=== PATIENT | female | born 1985 | race Caucasian/White ===

== ENCOUNTER → 2016-11-16 07:17 | Day surgery (SDC) | payer OTHER ==
[~2016-11-16 07:17] MED LIST: Buffered Lidocaine 1% SYRIN* 3 ML/SYR SYRINGE INTRADERM ONE; Bupivacaine 0.25% SDV* 30 ML ONE; Dexamethasone IV* 4 MG/ML 1 ML (4 MG) ONE; DiMENhydriNATE IV* 50 MG/ML VIAL IV PUSH PRN; DiMENhydriNATE IV* 50 MG/ML VIAL ONE; Famotidine TAB* 20 MG ONE; Famotidine TAB* 20 MG PO ONE; Ketorolac INJ* 30 MG/ML 1 ML VIAL ONE; Lidocaine 2% PF* 5 ML VIAL ONE; Metoclopramide TAB* 10 MG ONE; Metoclopramide TAB* 10 MG PO ONE; Ondansetron INJ* 2 MG/ML VIAL ONE; Propofol* 10 MG/ML 20 ML BTL IV PUSH ONE; Scopolamine 1.5 mg* PATCH ONE; Scopolomine PATCH Remove* 1 NOTE MISC PATCH OFF ONE; Sodium Citrate/Citric Acid* 15 ML UDC ONE; Sodium Citrate/Citric Acid* 15 ML UDC PO ONE; celeCOXIB CAP* 100 MG ONE; celeCOXIB CAP* 100 MG PO ONE; fentaNYL* 50 MCG/ML 2 ML VIAL (100 MCG VIAL) ONE; oxyCODONE/Acetamin 5/325 MG* TAB ONE
[2016-11-16 07:31] LABS: Manual Entry Verification AS; UR Preg Internal Control QC Line Present; UR Preg Kit Lot# 6030156
[2016-11-16] MEDS: fentaNYL* 50 MCG/ML 2 ML VIAL (100 MCG VIAL) IV PRN ×4 (11:41→12:37)
[2016-11-16] MEDS: oxyCODONE/Acetamin 5/325 MG* TAB PO PRN ×2 (12:01→12:04)
[2016-11-16 12:53] VITALS: BP 115/78
--- NOTE | 2016-11-17 00:50 | OP ---
DATE OF OPERATION: 11/16/16 [facility] DATE OF : 87 SURGEON: Gaby Hendrix MD SHOE DYER: Kg Watkins MD ANESTHESIOLOGIST: Coleman Rivas MD ANESTHESIA: General PRE-OP DIAGNOSES: Suspected bilateral endometriomas, desires contraception. POST-OP DIAGNOSIS: Endometriosis. OPERATIVE PROCEDURE: Laparoscopic left partial ovarian cystectomy, b/l ovarian cystotomy, fulgaration of endometriosis, lysis of adhesions. Mirena IUD insertion. ESTIMATED BLOOD LOSS: 300 mL. FLUID: Crystalloid. DRAINS: Clear urine. COMPLICATIONS: None. FINDINGS: On entrance into the abdominal cavity and inspection of the pelvis, the patient was noted to have large cysts on both ovaries with both ovaries scarred into the posterior cul-de-sac. There was a small spot of clear endometriosis in the right lower anterior pelvic wall and some endometriosis on the left pelvic side wall. These turned out to be chocolate cysts when they were ruptured. Both tubes appeared normal with minimal endometriotic damage and the uterus appeared normal anteriorly just with the scarring posteriorly. Appendix and liver and the intestines that were seen appeared normal. DESCRIPTION OF PROCEDURE: After informed consent was signed, the patient was taken to the operating room where she was given general anesthesia that was found to be adequate. She was prepped and draped in the dorsal lithotomy position in the [facility]. A speculum was placed into her vagina to expose the cervix and the anterior lip of the cervix was grasped with a single- tooth tenaculum. The Hulka manipulator was then inserted into the cervix. Cadet catheter was placed into the bladder and removed after the procedure. Gloves were changed and attention was turned to the abdomen. The infraumbilical fold was grasped with two Allis clamps, tented up, injected with lidocaine and incised in a transverse fashion with a scalpel 10 mm in length. This incision was then carried down to the underlying layer of fascia, which was grasped with two Lori clamps, tented up, and cut with the Alcala scissors. The fascial incision was extended with combination of sharp and blunt dissection. The peritoneum was then grasped and tented up, cut with Metzenbaum scissors and eventually the abdominal cavity was entered bluntly. The camera was assembled and inserted with the trocar into the abdominal cavity. Once entrance was confirmed, the abdomen was insufflated and the previously mentioned findings were noted. Two lateral ports were then placed. The location was first injected with lidocaine with epinephrine. Then, a 5-mm incision was made with a scalpel and the trocar was inserted under direct visualization. Next, attention was turned to the pelvis. The adhesions were bluntly released between the uterus and the ovaries. The larger cyst coming from the left ovary began to drain and as much fluid was drained as possible. This was then suctioned and irrigated. A small portion of the cyst wall was removed along with some ovary, but it was very difficult to separate the cyst wall from the ovary itself as the wall was very thick. Next, attention was turned to the right ovary where cautery was used to incise the ovary until the cyst began to drain. There were both a chocolate cyst and a simple fluid- filled cyst that were drained. Bipolar and monopolar cautery were then used to cauterize the ovary on both sides where there was some bleeding. Fulguration of this one spot of clear endometriosis on the anterior right pelvic wall was done with the LigaSure device. The ovaries were released from the adhesions in the pelvis, so they could move freely. The abdomen was extensively irrigated and suctioned until there was minimal bleeding noted. Attention was turned back to the vagina. Speculum was placed into the vagina and the Hulka manipulator was removed. The anterior lip of the cervix was grasped with a single-tooth tenaculum. The uterus was sounded to 8 cm. The Mirena IUD was then set to 8 cm and easily inserted into the uterine cavity. The arms were deployed. After 10 seconds, the device was then removed. The strings were cut to 3 to 4 cm. The tenaculum was removed with good hemostasis. During this time, the abdomen was inspected and minimal bleeding was noted. Therefore, the lateral ports were then removed under direct visualization. The umbilical port was removed. The incisions were closed with 4-0 Vicryl in a subcuticular fashion. Then, Mastisol and Steri-Strips were placed. The patient was cleaned, placed back in the supine position, moved to the stretcher , awakened from anesthesia, and taken to the recovery room in stable condition. [id number] #: [id number] [facility]OSPITALSheron
== END | disposition home or self-care (01) ==
LOC: OR 07:17
PROVIDERS: ATTEND Obstetrics & Gynecology
DX: N80.3 Endometriosis of pelvic peritoneum (principal); N83.202 Unspecified ovarian cyst, left side; N83.201 Unspecified ovarian cyst, right side; N73.6 Female pelvic peritoneal adhesions (postinfective); Z30.430 Encounter for insertion of intrauterine contraceptive device; N94.4 Primary dysmenorrhea
CPT/HCPCS: 81025; 88305; A9270-GY; J1100; J1240; J1885; J2405; J2704; J3010; J7300

== ENCOUNTER 2020-10-03 01:01 | Inpatient (IN) ==
[2020-10-03] MEDS ORDERED: Lactated Ringers 1000 ml BAG 1,000 ML IV ONE (01:51)
[2020-10-03] MEDS ORDERED: Buffered Lidocaine 1% SYRIN 1 ml INTRADERM ONE (01:51)
[2020-10-03] MEDS ORDERED: Lactated Ringers 1000 ml BAG 1,000 ML IV SCH ×2 (02:00→09:00)
[2020-10-03] MEDS ORDERED: fentaNYL 100 mcg/2 ml 50 MCG/ML VIAL IV SLOW PU ONE (02:59)
[2020-10-03] MEDS ORDERED: Lidocaine 2% JELLY 6 ML TOPICAL PRN (03:10)
[2020-10-03 03:26] LABS: Urine Benzodiazepine Screen None Detected (None Detect); Urine Cannabinoids Screen None Detected (None Detect); Urine Opiates Screen None Detected (None Detect)
[2020-10-03 03:33] LABS: ABS Basophils 0.1 10^3/ul (0-0.2); ABS Monocytes 0.4 10^3/ul (0-0.8); ABS Neutrophils 16.5 10^3/ul (1.5-7.7); Hematocrit 38 % (35-47); Hemoglobin 13.1 g/dL (12.0-16.0); Lymphocyte % 5.8 %; Mean Corpuscular HGB Conc 35 g/dL (31-36); Mean Corpuscular Hemoglobin 30 pg (27-31); Mean Corpuscular Volume 86 fL (80-97); Mean Platelet Volume 10.6 fL (7.4-10.4); Platelet Count 178 10^3/uL (150-450); Red Blood Count 4.37 10^6 /uL (3.70-4.87); Red Cell Distribution Width 13 % (10-15)
[2020-10-03] MEDS ORDERED: Lidocaine 2% JELLY 6 ML TOPICAL ONE (05:49)
[2020-10-03] MEDS ORDERED: Oxytocin in LR 20 UNITS/1,000 ML BAG IVPB ONE (08:14)
[2020-10-03] MEDS ORDERED: Witch Hazel PAD JAR TOPICAL PRN (08:59)
[2020-10-03] MEDS ORDERED: Dibucaine 1% OINT 28.35 GM TUBE PR PRN (08:59)
[2020-10-03] MEDS ORDERED: RHO D Immune Globulin (HUMAN) 300 MCG = 1,500 I.U. INJ IM PRN (08:59)
[2020-10-03] MEDS ORDERED: Glycerin ADULT 2.4 gm SUPP PR PRN (08:59)
[2020-10-04 07:42] LABS: ABS Basophils 0.1 10^3/ul (0-0.2); ABS Lymphocytes 1.7 10^3/ul (1.0-4.8); ABS Monocytes 0.8 10^3/ul (0-0.8); ABS Neutrophils 10.5 10^3/ul (1.5-7.7); Eosinophil % 0.3 %; Hematocrit 36 % (35-47); Hemoglobin 12.1 g/dL (12.0-16.0); Lymphocyte % 12.9 %; Mean Corpuscular HGB Conc 34 g/dL (31-36); Mean Corpuscular Hemoglobin 31 pg (27-31); Mean Corpuscular Volume 90 fL (80-97); Mean Platelet Volume 9.9 fL (7.4-10.4); Platelet Count 163 10^3/uL (150-450); Red Blood Count 3.96 10^6 /uL (3.70-4.87); Red Cell Distribution Width 13 % (10-15); White Blood Count 13.2 10^3/uL (3.5-10.8)
[2020-10-04 08:04] VITALS: BP 106/70
== END 2020-10-04 17:14 | disposition home or self-care (01) | DRG 560 ==
LOC: MCHOBOUT 01:01 → MCHOB 01:58
PROVIDERS: ADMIT Midwife; ATTEND Midwife